=== PATIENT | male | born 1980 | race Two or more races ===

== ENCOUNTER 2018-08-04 13:57 | Emergency (ER) | payer OTHER ==
[2018-08-04] MEDS ORDERED: TDAP ADULT 0.5 ML INJ (BOOSTRIX) IM ONE (14:49)
--- NOTE | 2018-08-04 14:51 | EDPHY ---
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 Patient has already been in touch with [place] police and animal Control who are working to track down the customer and dog service line bus cleaner. Patient was unaware of his tetanus status and this was updated in the ED today. He has a superficial wound to the leg, no open laceration or signs of secondary infection , necrotizing fasciitis, cellulitis, lymphangitis. He ambulates without pain. Augmentin prescribed. Encouraged PCP follow-up and referrals given. Warning signs return to ED sooner discussed discharge. 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 Patient reports after the customer pay the bill they allegedly ran off and he did not get their contact information. He contacted police who are in the process of contacting the dog owners. Patient has a superficial wound to the right lower leg but reports no pain with walking. He does not know his tetanus vaccine is up-to-date. He reports no numbness or loss of sensation to the lower leg. PAST MEDICAL HISTORY: No reported past medical history REVIEW OF SYSTEMS: All other systems negative Constitutional: No fever, no chills Musculoskeletal: No deformity, no joint pain Skin: Wound to right lower leg Neurological: No sensory loss or weakness PHYSICAL EXAM: General Appearance: Alert, oriented, appropriate for age, cooperative, NAD, well hydrated, non-toxic appearing, VSS, no hypoxia. Neurological: Alert and oriented x 3 Skin: Superficial wound to the right lower leg, near the tibial tuberosity. No open wound or bleeding. No open laceration. No lymphangitis. Musculoskeletal: Full range of motion of the right lower leg. Gait normal without pain MEDICAL DECISION MAKING: Patient was seen independently. Secondary supervising physician at time of evaluation was Dr. Yadav. Diagnosis: Dog bite right lower leg . New, requires workup Summary: See assessment and plan for summary of ED visit Patient Progress stable for discharge. - History Smoking Status: Never smoked - Objective Vital Signs: Initial Vital Signs Temperature (C) 37.4 C 08/04/18 14:02 Heart Rate 91 08/04/18 14:02 Respiratory Rate 16 08/04/18 14:02 Blood Pressure 115/84 H 08/04/18 14:02 O2 Sat (%) 96 08/04/18 14:02 O2 Delivery Mode Room Air Allergies/Adverse Reactions: No Known Allergies Allergy (Unverified 08/04/18 14:02) Home Medications: Medication Instructions Recorded Amoxicillin/Clavulanate Pot 875 mg PO BID #14 tab 08/04/18 [Augmentin 875 mg tab] Departure - Departure Disposition: Home, Routine, Self-Care Clinical Impression: Dog bite Qualifiers: Encounter type: initial encounter Qualified Code(s): W54.0XXA - Bitten by dog, initial encounter Condition: Good Instructions: Animal Bite (ED) Additional Instructions: DISCHARGE INSTRUCTIONS FROM YOUR DOCTOR Thank you for visiting our emergency department today. You were treated by a physician bilingual administrative assistant today and your case was reviewed with our ED Attending physician. Please keep in mind that discharge from the emergency department does not mean that there is nothing wrong - it simply means that we have not identified an emergency condition that requires further evaluation or treatment in the hospital. You should always plan to follow up with primary care for re- evaluation of your condition in the next 2-3 days. If you have been referred to a specialist, please call as soon as possible (today or tomorrow) to schedule your follow up appointment at the appropriate time. YOUR TETANUS VACCINE WAS UPDATED IN THE EMERGENCY DEPARTMENT. A PRESCRIPTION FOR ANTIBIOTICS WAS PROVIDED. PLEASE GO DIRECTLY TO [facility] OR ANY OTHER LOCAL PHARMACY TO FILL THIS AND BEGAN TAKING IT TODAY. COMPLETE THE ENTIRE COURSE OF ANTIBIOTICS. YOU CAN RETURN TO THE MEDICAL RECORDS DEPARTMENT IN 2-3 DAYS TO OBTAIN YOUR CHART RECORDS FROM TODAY'S VISIT TO GIVE TO THE POLICE DEPARTMENT FOR REPORTING THE DOG BITE. RETURN TO THE EMERGENCY DEPARTMENT SOONER FOR INCREASED PAIN, SWELLING TO THE SITE, REDNESS, FEVERS, RED STREAKS GOING DOWN THE LEG, OR ANY OTHER CONCERNS OF INFECTION. People present with illnesses and injuries in different ways, and it is always possible that we have missed something. You may always return for re-evaluation if symptoms worsen or if they are not improving or if you develop new/different symptoms. Again, thank you for choosing our emergency department. We hope that you feel better. Referrals: [facility],. [Clinic] - 2-3 days, call for appt. Prescriptions: Amoxicillin/Clavulanate Pot [Augmentin 875 mg tab] 875 mg PO BID #14 tab
[2018-08-04 14:58] VITALS: BP 113/77
== END 2018-08-04 15:21 | disposition home or self-care (01) ==
DX: S81.831A Puncture wound without foreign body, right lower leg, initial encounter (principal); Z23 Encounter for immunization; W54.0XXA Bitten by dog, initial encounter; Y92.511 Restaurant or cafe as the place of occurrence of the external cause

== ENCOUNTER 2018-08-07 14:25 | Emergency (ER) | payer OTHER ==
[2018-08-07 14:29] VITALS: BP 109/60
--- NOTE | 2018-08-07 14:35 | EDPHY ---
H & P Stated Complaint: RABIES VACCINATION Time Seen by Provider: 08/07/18 14:34 - Personal History Current Tetanus Diphtheria and Acellular Pertussis (TDAP): Yes - Medical/Surgical History Hx Asthma: No Hx Chronic Respiratory Disease: No Hx Diabetes: No Hx Cardiac Disease: No Hx Renal Disease: No Hx Cirrhosis: No Hx Alcoholism: No Hx HIV/AIDS: No Hx Splenectomy or Spleen Trauma: No Other PMH: denies - Social History Smoking Status: Never smoked Constitutional: Initial Vital Signs Temperature (C) 36.7 C 08/07/18 14:27 Heart Rate 86 08/07/18 14:27 Respiratory Rate 16 08/07/18 14:27 Blood Pressure 109/60 08/07/18 14:27 O2 Sat (%) 94 08/07/18 14:27 Allergies/Adverse Reactions: No Known Allergies Allergy (Unverified 08/04/18 14:02) Home Medications: Medication Instructions Recorded NK [No Known Home Meds] 08/07/18 Medical Decision Making ED Course/Re-evaluation: CHIEF COMPLAINT: Requesting rabies vaccination. HISTORY OF PRESENT ILLNESS: The patient is a 37 y/o male requesting his second rabies vaccination for a dog bite. 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 He presented to the emergency department and was started on Augmentin and given a tetanus vaccination. At that time he did not receive the rabies vaccination or immunoglobulin. He is concerned that he has rabies now. No fever, headache, body aches, lightheadedness, chest pain, heart palpitations, shortness of breath , cough, abdominal pain, urinary or bowel complaints, numbness, paresthesias. REVIEW OF SYSTEMS: A comprehensive 10 system review of systems is otherwise negative aside from elements mentioned in the history of present illness and medical decision making. PHYSICAL EXAM: HR, BP, O2 Sat, RR. Temp noted General Appearance: Alert, well hydrated, appropriate, and non-toxic appearing. Head: Atraumatic without scalp tenderness or obvious injury Eyes: Pupils equal, round, reactive to light and accommodation, EOMI, no trauma , no injection. Ears: Clear bilaterally, no perforation, normal landmarks Nose: Atraumatic, no rhinorrhea, clear. Throat: There is no erythema or exudates, no lesions, normal tonsils, mucus membranes moist. Neck: Supple, 2+ carotid upstroke, nontender, no lymphadenopathy. Respiratory: No retractions, no distress, no wheezes, and no accessory muscle use. Lungs are clear to auscultation bilaterally. Cardiovascular: Regular rate and rhythm, no murmurs, rubs, or gallops. Bilateral carotid, radial, dorsalis pedis, and posterior tibial pulses intact. Good capillary refill all extremities. Gastrointestinal: Abdomen is soft, nontender, non-distended, no masses, no rebound, no guarding, no peritoneal signs. Musculoskeletal: Normal active ROM of all extremities, atraumatic. Neurological: Alert, appropriate, and interactive. The patient has normal DTRs and non-focal cranial nerves, motor, sensory, and cerebellar exam. Skin: Well healing dog bite on right leg. No rashes, good turgor, no nodules on palpation. Past medical history: Denies Past surgical history: Denies Family history: Denies Social history: Employed, lives in [place], from [facility] DIAGNOSTICS/PROCEDURES/CRITICAL CARE TIME: Not indicted. DIFFERENTIAL DIAGNOSIS: The differential diagnosis for the patient's complaint includes but is not limited to rabies exposure, rabies, dog bite, viral infection, cellulitis, bacterial infection, fungal infection. MEDICAL DECISION MAKING: The patient is a 37 y/o male requesting his second rabies vaccination for a dog bite. 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 He presented to the emergency department and was started on Augmentin and given a tetanus vaccination. At that time he did not receive the rabies vaccination or immunoglobulin. I will give him the immunoglobulin as well as day 0 of the rabies invaccination. He will need day 3, 7, and 14 of the vaccination at the [facility]. I have also advised him to continue taking the antibiotic. Return precautions provided; patient is comfortable with this plan. Departure - Departure Disposition: Home, Routine, Self-Care Clinical Impression: Rabies exposure Condition: Good Instructions: Rabies Vaccine (By injection), Rabies Immune Globulin (By injection), Rabies (ED), Rabies Vaccine (ED) Additional Instructions: 1. You received the rabies immunoglobulin today 2. You received day 0 of the rabies vaccination. You will need vaccinations on day 0, 3, 7, and 14. Please go to the [facility] for the following rabies vaccinations. 3. Continue taking your antibiotics as prescribed. 4. Return to the Emergency Department for fever, chest pain, shortness of breath , increasing pain or other worsening of condition. Referrals: [facility] (ED,. [Edm Groups for Call Sched] - As per Instructions Report Scribed for: [place] Yadav Report Scribed by: Annika Armando Date of Report: 08/07/18 Time of Report: 14:48
[2018-08-07] MEDS ORDERED: RABIES VACC, HUMAN DIPLOID/PF 2.5 UNIT VIAL (RABAVERT) IM ONE (14:50)
[2018-08-07] MEDS ORDERED: RABIES IMMUNE GLOBULIN/PF 300 UNIT/ML VIAL IF ONE (14:50)
--- NOTE | 2018-08-08 13:13 | ASMTCMCOM ---
CM Note CM Note Notes: Requested to assist pt with scheduling a followup appt at the [facility] ([phone]) for the remainder of his rabies vaccinations. CM called the [facility] and was able to schedule an appt on Friday08/10/18 at 2:30pm with Dr Balaji Bender. CM requested that provide bioinformatics assistant services for the pt. Pt is from [facility] and has lived in [place] for 3 years and speaks [place] but it would be best if an bioinformatics assistant is available and utilized. Pt states he was contacted by [facility] Assistant Manager Of Operations Bobby Ballard ([phone]) and was told that the dog that bit him has not been located so Officer Nellie encouraged the pt to return to the ED for the rabies vaccination. Pt is concerned about the ED bills from today and his ED visit on 08/04/18). 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 Pt states that Officer Nellie told him to e-mail his ED bills to him. Pt states the 08/10 appt will work and he knows he will make his additional follow-up appts at that time. CM available for further assistance if needed. Date Signed: 08/08/2018 01:13 PM Electronically Signed By:Perla Ramirez RN
== END 2018-08-07 16:40 | disposition home or self-care (01) ==
DX: Z20.3 Contact with and (suspected) exposure to rabies (principal); W54.0XXA Bitten by dog, initial encounter; Y92.511 Restaurant or cafe as the place of occurrence of the external cause; Y99.0 Civilian activity done for income or pay